=== PATIENT | female | born 1970 | race Caucasian/White ===

== ENCOUNTER 2021-09-03 13:35 | Outpatient (CLI) | payer BC, SELFPAY ==
--- NOTE | 2021-09-03 14:06 | MM_ITS ---
WS: [id number] BILATERAL 3D TOMOSYNTHESIS DIGITAL SCREENING MAMMOGRAPHY WITH CAD CLINICAL INFORMATION: SCREENING HISTORY: Screening mammogram. No current complaints. COMPARISON: None. TECHNIQUE: Bilateral CC and MLO views. FINDINGS: Bilateral breast implants. Breast implants appear intact. Scattered fibroglandular densities bilaterally. A few incidental punctate calcifications. Dense subar eolar breast tissue bilaterally. No suspicious focal mass, asymmetry, calcifications, or architectura l distortion. No evidence of malignancy. MM/[id number] IMPRESSION: BI-RADS: 2-Benign FOLLOW UP: 1 Year Follow-up Recommend return to annual screening mammography.
== END 2021-09-03 13:36 | disposition home or self-care (01) ==
LOC: RAD 13:38
PROVIDERS: Visit Provider Registered Nurse
DX: Z12.31 Encounter for screening mammogram for malignant neoplasm of breast (principal)
CPT/HCPCS: 77063; 77067